=== PATIENT | male | born 1985 | race Caucasian/White ===

== ENCOUNTER 2018-06-26 14:17 | Emergency (ER) | payer MEDICAID ==
[~2018-06-26] VITALS: Ht 175.3 cm; Wt 60.0 kg
[2018-06-26 14:28] VITALS: BP 115/65; PULSE 84; RESP 18; Ht 175.3 cm; Wt 60.0 kg
[2018-06-26] MEDS ORDERED: IBUP-1542 PO (15:30)
[2018-06-26] MEDS ORDERED: CEPH-443 PO (15:30)
[2018-06-26] MEDS ORDERED: CEPHALEXIN 500 MG CAP PO ONE (15:30)
[2018-06-26] MEDS ORDERED: IBUPROFEN 600 MG TAB PO ONE (15:30)
--- NOTE | 2018-06-26 15:33 | ERD ---
ER Documentation Chief Complaint Chief Complaint pt bib self with c/o right thumb "infection" HPI 32-year-old male presents with pain swelling redness near his nail in his right thumb for last 2 days. He states it started while trying to cut his own cuticle. Denies any history of trauma. Denies biting on his nails. Denies fevers, additional symptoms. ROS All systems reviewed and are negative except as per history of present illness. Medications Home Meds Active Scripts Ibuprofen* (Motrin*) 600 Mg Tab, 600 MG PO Q6, #15 TAB Prov:LALITHA ROSA MD 06/26/18 Cephalexin* (Keflex*) 500 Mg Capsule, 500 MG PO QID for 7 Days, CAP Prov:LALITHA ROSA MD 06/26/18 Allergies Allergies: Coded Allergies: No Known Allergy (Unverified , 06/26/18) PMhx/Soc Medical and Surgical Hx: pt denies Medical Hx, pt denies Surgical Hx Hx Alcohol Use: No Hx Substance Use: Yes (Social smokes weed) Hx Tobacco Use: No Smoking Status: Never smoker FmHx Family History: No diabetes, No coronary disease, No other Physical Exam Vitals Vital Signs Date Temp Pulse Resp B/P (MAP) Pulse Ox O2 O2 Flow FiO2 Time Delivery Rate 06/26/18 98.3 84 18 115/65 98 14:28 (82) Physical Exam Const: No acute distress Head: Atraumatic Eyes: Normal Conjunctiva ENT: Normal External Ears, Nose and Mouth. Neck: Full range of motion. No meningismus. Resp: Clear to auscultation bilaterally Cardio: Regular rate and rhythm, no murmurs Abd: Soft, non tender, non distended. Normal bowel sounds Skin: No petechiae or rashes Back: No midline or flank tenderness Ext: No cyanosis, or edema. Right arm with some redness and swelling at the paronychia area of the right thumb. No induration, proximal tendon tenderness, bony tenderness, Neur: Awake and alert Psych: Normal Mood and Affect Results 24 hrs Current Medications Medications Dose Sig/Rafael Start Time Status Last (Trade) Ordered Route PRN Stop Time Admin Dose Reason Admin Ibuprofen 600 mg ONCE ONCE 06/26/18 (Motrin) PO 15:30 06/26/18 15:31 Cephalexin 500 mg ONCE ONCE 06/26/18 (Keflex) PO 15:30 06/26/18 15:31 Procedures/MDM Patient presents with signs of a paronychia on the right thumb. LMX was applied. Lesion was unroofed with 18-gauge needle. Scant amount of pus was expressed. Wound was dressed the patient tolerated procedure well. Patient was given ibuprofen and Keflex by mouth. Patient presents with a paronychia without signs of tenosynovitis, ostium myelitis, fracture, dislocation, significant cellulitis or sepsis. He will be treated with Keflex, ibuprofen, instructions for warm compresses, return precautions for worsening redness, fevers, new worsening symptoms. Patient states that he would like to be tested for "everything" and allergy testing as well. patient will be referred to primary care doctor for further evaluation primary care as there are no identifiable signs or symptoms of concerning ileus currently. The patient was stable with no new complaints during the ER course. Clinically, there is no current evidence to suggest meningitis, sepsis, acute abdomen, pneumonia, stroke, acute coronary syndrome, pulmonary embolism, aortic dissection or any other emergent condition appearing to require further evaluation or hospitalization. Patient counseled regarding my diagnostic impression and care plan. Prior to discharge all questions answered. Pt agrees with treatment plan and understands strict return precautions. Pt is instructed to follow up with primary care provider within 24- 48 hours. Precautionary instructions provided including instructions to return to the ER if not improving or for any worsening or changing symptoms or concerns. . Departure Diagnosis: Primary Impression: Paronychia Condition: Stable Patient Instructions: Paronychia Referrals: [facility] () Usted se dominguez hecho un examen mdico de control que le indica que no est en minna condicin que requiera tratamiento urgente en el Departamento de Emergencia. Un estudio ms profundo y el tratamiento de webb condicin pueden esperar sin ningn riesgo hasta que usted sea atendida/o en el consultorio de webb mdico o minna clnica. Es responsabilidad suya arreglar minna palak para el seguimiento del diandra. MANEJO DE CONDICIONES NO URGENTES EN EL FUTURO 1) Si usted tiene un mdico de atencin primaria: Usted debera llamar a webb mdico de atencin primaria antes de venir al departamento de emergencia. Despus de las horas de consultorio, webb doctor o webb asociado/a est disponible por telfono. El mdico o enfermero de dino en el servicio telefnico puede asesorarle por kathia medio para atender el problema, o diandra contrario se puede programar minna palak. 2) Si usted no tiene un mdico de atencin primaria: Llame al mdico o clnica de referencia que aparece abajo alisia las horas de consultorio para hacer minna palak para que le vean. CLINICAS: [facility] [phone] [facility] [phone] [facility] [id number] [facility] [phone] [facility] [phone] [address] [facility] [phone] [address] Additional Instructions: Warm compresses or soaks at home. Recheck for worsening redness, fevers, or new or worsening symptoms. LALITHA ROSA MD Jun 26, 2018 15:33
== END 2018-06-26 15:40 | disposition home or self-care (01) ==
LOC: FTE 14:17
DX: L03.011 Cellulitis of right finger (principal)
CPT/HCPCS: Z7502; Z7610; 99283